=== PATIENT | male | born 1980 | race Caucasian/White ===

== ENCOUNTER 2023-12-11 08:16 | Outpatient (CLI) | payer BC ==
--- NOTE | 2023-12-11 22:25 | CT Report ---
PROCEDURE: Pelvis WO INDICATIONS: L INGUINAL PAIN TECHNIQUE: Noncontrast 3 mm axial sections acquired through the bony pelvis, with coronal and sagittal reformatt ing. For radiation dose reduction, the following was used: automated exposure control, adjustment of mA and/or kV according to patient size. COMPARISON: None. FINDINGS: Image quality: Excellent. Bones: No aggressive appearing lesion. Small lucencies at the right ilium, (4/). A small intraosse ous hemangioma at L4. No fracture. No dislocation. Soft tissues: Somewhat prominent stool the colon. The appendix is nondilated. No free fluid in the p leora. Probable fat-containing right inguinal hernia. No left inguinal hernia seen. Small hydroceles. Question left varicocele. IMPRESSION: 1. Probable fat-containing right inguinal hernia. 2. No left inguinal hernia seen. Question left varicocele. Consider further evaluation with paulo briggs Reviewed by: Stew Reyes MD on 12/11/2023 10:24 PM PDT Approved by: Stew Reyes MD on 12/11/2023 10:24 PM PDT Station ID: [id number]
== END 2023-12-11 08:17 | disposition home or self-care (01) ==
LOC: DI 08:16
PROVIDERS: ATTEND Surgery
DX: R10.2 Pelvic and perineal pain (principal)

== ENCOUNTER 2023-12-29 06:25 | Day surgery (SDC) | payer BC ==
[2023-12-29] MEDS ORDERED: ceFAZolin 2 GM VIAL ONE (06:27)
[2023-12-29] MEDS: LACTATED RINGERS 1,000 ML IV ONE ×3 (06:34→12:16)
--- NOTE | 2023-12-29 06:55 | ANESTHESIA ---
Pre-Anesthesia VS, & Labs - Diagnosis R inguinal hernia, LIH recurrent pain - Procedure B inguinal hernia repair Vital Signs: Temp Pulse Resp BP Pulse Ox O2 Flow Rate 36.3 C L 59 L 14 112/65 95 12/29/23 06:35 12/29/23 06:35 12/29/23 06:35 12/29/23 06:35 12/29/23 06:35 Height: 5 ft 8.5 in Weight (kg): 84.2 kg Body Mass Index: 27.8 BMI Classification: Overweight - NPO >8 hours - Lab Results Lab results reviewed: Yes Home Medications and Allergies Home Medications: Ambulatory Orders Acetaminophen [Tylenol] 650 mg PO Q6H PRN 12/22/23 Meloxicam [Mobic] 7.5 mg PO DAILY PRN 12/22/23 Acetaminophen [Tylenol] 650 mg PO Q6H PRN 12/22/23 Meloxicam [Mobic] 7.5 mg PO DAILY PRN 12/22/23 Allergies/Adverse Reactions: Allergies Allergy/AdvReac Type Severity Reaction Status Date / Time No Known Drug Allergies Allergy Verified 12/29/23 06:58 Anes History & Medical History - Anesthetic History Anesthesia Complications: reports: No previous complications Family history of Anesthesia Complications: Denies Family history of Malignant Hyperthermia: Denies - Medical History Cardiovascular: reports: None Pulmonary: reports: None Gastrointestinal: reports: None Urinary: reports: None Musculoskeletal: reports: None Endocrine/Autoimmune: reports: None Skin: reports: Rosacea - Surgical History General: reports: Other Exam General: Alert, Oriented x3, Cooperative Dental: WNL Mouth Openin Fingerbreadth Neck Mobility: Normal Mallampati classification: II Thyromental Distance: 4-6 cm Respiratory: Lungs clear Cardiovascular: Regular rate Neurological: Normal speech Mental/Cognitive Status: Alert/Oriented X3, Normal for patient Cognitive Status: Within normal limits Plan Anesthesia Type: General Consent for Procedure(s) Verified and Reviewed: Yes Code Status: Attempt Resuscitation ASA classification: 2-Mild systemic disease Is this case an emergency?: No
[2023-12-29] MEDS ORDERED: PROPOFOL 200 MG/20 ML VIAL IVP ONE (07:03)
[2023-12-29] MEDS ORDERED: LIDOCAINE-PF 2% 10 ML AMP SUBQ ONE (07:03)
[2023-12-29] MEDS ORDERED: fentaNYL 100 MCG/2 ML VIAL ONE ×3 (07:03→10:36)
[2023-12-29] MEDS ORDERED: MIDAZOLAM 2 MG/2 ML VIAL ONE (07:03)
[2023-12-29] MEDS ORDERED: BUPIVACAINE 0.5%-EPI 1:200000 PF 30 ML VIAL ONE ×2 (07:16→10:18)
[2023-12-29] MEDS ORDERED: HYDROmorphone 0.5 MG/0.5 ML SYRINGE IVP PRN ×2 (07:20→12:27)
[2023-12-29] MEDS ORDERED: METOCLOPRAMIDE 10 MG/2 ML VIAL IVP PRN (07:20)
[2023-12-29] MEDS ORDERED: ePHEDrine 50 MG/ML VIAL IVP PRN (07:20)
[2023-12-29] MEDS ORDERED: fentaNYL 100 MCG/2 ML VIAL IVP PRN (07:20)
[2023-12-29] MEDS ORDERED: MORPHINE 2 MG/ML CARPUJECT IVP PRN (07:20)
[2023-12-29] MEDS ORDERED: NALOXONE 0.4 MG/ML VIAL IVP PRN (07:20)
[2023-12-29] MEDS: BUPIVACAINE 0.5%-EPI 1:200000 PF 30 ML VIAL SUBQ ONE (07:20)
[2023-12-29] MEDS ORDERED: ATROPINE ABBOJECT 1 MG/10 ML SYRINGE IVP PRN (07:20)
[2023-12-29] MEDS ORDERED: LACTATED RINGERS 1,000 ML IV SCH (08:00)
[2023-12-29] MEDS ORDERED: DEXAMETHASONE 4 MG/ML VIAL ONE (08:15)
[2023-12-29] MEDS ORDERED: ONDANSETRON 4 MG/2 ML VIAL ONE ×2 (08:15→12:10)
[2023-12-29] MEDS ORDERED: ACETAMINOPHEN 1,000 MG/100 ML 1,000 MG/100 ML BAG IV ONE (09:17)
[2023-12-29] MEDS ORDERED: ALBUTEROL 6.7 GM INHALER INH ONE (09:23)
[2023-12-29] MEDS ORDERED: KETOROLAC 30 MG/ML VIAL ONE (09:54)
[2023-12-29] MEDS: LACTATED RINGERS 300 ML IV ONE ×2 (11:30→11:55)
--- NOTE | 2023-12-29 11:38 | OPERATIVE REPORT ---
Operative Report - General Procedure Date: 12/29/23 Planned Procedure: Exploration of left inguinal herniorrhaphy site, possible explantation of mesh, possible neurectomy (left ilioinguinal), possible left inguinal herniorrhaphy, hydrocelectomy Right inguinal herniorrhaphy, hydrocelectomy Pre-Op Diagnosis: Persistent debilitating pain left inguinal herniorrhaphy site Procedure Performed: Exploration of left inguinal herniorrhaphy site, explantation of mesh, neurectomy of left ilioinguinal nerve, left direct inguinal herniorrhaphy with mesh, left hydrocelectomy Right direct inguinal herniorrhaphy with mesh, right hydrocelectomy Intraoperative consultation to Harpreet Rosado MD (urologist) Post Op Diagnosis: Right direct inguinal hernia, right hydrocele, left hydrocele, left ilioing - Procedure Note Primary Surgeon: Peter Olson MD Secondary Surgeon: Harpreet Rosado MD Anesthesia Provider: Stone Medina CRNA Anesthesia Technique: General LMA, Local (50 mL of half percent Marcaine with epinephrine (30 mL applied to the left-hand side and a 20 mL applied to the right-hand side)) IV Fluids (mL): 800 Estimated Blood Loss (mL): 15 Drain/Tube Type: Other (None.) Complications: None. - Other Other Information/Narrative: After verbal and written informed consent was obtained detailing the operation, the alternatives the operation including no operation, risks of infection, bleeding requiring transfusion with its risks, loss of the testicle, nerve injury, and and after I met with the patient and his mother confirming the surgery and the site of surgery, the patient was brought to the operative suite and placed supine on the operating table. Great care was taken to avoid pressure points to prevent pressure necrosis or nerve injury. Monitoring devices were applied along with TEDs and pneumatic compression stockings (to prevent DVT). The patient received preoperative antibiotics for surgical prophylaxis. Stone Medina CRNA sedated and anesthetized the patient for the entire procedure. The patient was prepped and draped in the usual sterile manner. With the patient draped my initials were clearly visible. A "time in" then confirmed that the patient was identified with 3 identifiers (name, date, and medical record number), the history and physical was updated and in the chart, the signed consent confirming the procedure was in the chart, the patient was in the correct position, the aforementioned prophylactic measures were in place or given, we had the correct personnel and equipment to complete the procedure and that anesthesia and the surgical team were given an opportunity to express any concerns. With the agreement of everyone in the room we proceeded with the operation. I decided not to use the previous inguinal incision as it was almost 3 inches superior to where I would normally place my inguinal incision. As such, I incised the skin starting and the superior lateral aspect of the pubic tubercle and going laterally 8 cm. Dissection was carried out down through the subcutaneous tissues using a combination of Metzenbaum scissors and Bovie electrocautery. The external bleak aponeurosis was identified there was very well-defined Viviana's fascia and this was traversed and going deeper to the external oblique aponeurosis. At this point in time there was marked scarring and due to an overwhelming concern of mine that the dissection could compromise the patient's testicle I decided to consult Dr. Harpreet Rosado. He promptly arrived to the operating theater and was present for the entirety of the left sided surgery (greater than 2-1/2 hours). The external oblique aponeurosis was cleared of overlying adherent tissue, and the external ring was delineated. The external oblique was incised with a scalpel and this incision was carried down to the external ring using Metzenbaum scissors. Care was taken not to injure the ilioinguinal nerve. Having exposed the inguinal canal, the cord structures were from the canal using blunt dissection and a Danyel drain was placed around the cord structures at the level of the pubic tubercle. This Danyel drain was then used to retract the cord structures as needed. Adherent cremasteric muscle was dissected free from the cord using Bovie electrocautery. The external oblique was carefully opened using a scalpel and this was dissected free from the cord contents and mesh with difficulty. Control of the cord contents was obtained at the pubic tubercle and a [place] drain was placed around it. The Danyel drain was used to retract the cord structures as needed. There was marked scarring. The ProGrip mesh had been used previously has an opening which creates the internal ring but this did not appear to have been used during our dissection. Rather, the cord contents were coming out laterally to where the mesh had been placed. As the mesh placement did not make sense in relationship to the internal ring I decided that explantation of the mesh was the best option. This was done with the greatest of difficulty. There was marked scarring and adhesions. The mesh was from the conjoined tendon superiorly and the shelving edge inferiorly as well as the pubic tubercle medially using combination of Metzenbaum scissors, scalpel, Bovie electrocautery, and traction and countertraction. The previously placed Prolene sutures were also removed. Once the mesh was removed the cord was explored in detail using a combination of sharp and blunt dissection and no indirect sac could be found. At this point attention was placed towards resecting the hydrocele. The testicle was brought up into the operative field the hydrocele identified opened and drained. The wall was then brought around the testicle and sewn to itself to ensure that there would be no recurrence using a running 3-0 Vicryl suture. Meticulous hemostasis was obtained using Bovie electrocautery. The testicle was then carefully placed into the scrotum. I then directed my attention to finding the ilioinguinal nerve at the superior lateral aspect of the wound and this was found. As I traced the nerve down medially it was clear that had been involved in the scarring and mesh and I decided that transection of the nerve and a superior lateral most aspect would be the best option to minimize or do away with this patient's pain. The nerve was sharply cut using Metzenbaum scissors. I opted not to send the nerve in for pathologic evaluation. A very large direct hernia was now the only remaining part of this operation that needed to be addressed. An extra large Bard PerFix plug (Ref#[id number], Lot#[id number], use by 2028-02-09) was then inserted into the direct hernia and secured to the edges of the hernia sac and closing the hernia sac using a [id number] 2-0 PDS. This allowed the hernia to be fixed without the hernia sac in our way. Two 0 PDS sutures were placed in the pubic tubercle and secured to the mesh in a U-stitch consideration configuration. The inferior stitch was then run laterally securing the mesh to the shelving edge of Poupart's ligament. The superior stitch was then run laterally securing the mesh to the conjoined tendon. Of course in both cases a try to find the very best tissue that I could considering the patient's scarring. The cord contents were clearly placed in the slot in the mesh that was meant for this purpose. The mesh was secured around the cord structures loosely with a 2-0 PDS suture thus creating a new internal ring. This new internal ring easily fit the tip of my middle finger. The [place] drain was then removed. Meticulous hemostasis was obtained using Bovie electrocautery. The wound was then injected superficially and deep using 30 mL of half percent Marcaine with epinephrine. The incision the external oblique was approximated using 3-0 Vicryl in a running fashion thus reforming the external ring. At the lateral aspect of this closure the mesh was picked up intentionally to ensure that it was secured both medially at the pubic tubercle and laterally. Viviana's fascia was approximated using interrupted 4-0 Monocryl. The skin incision was approximated with 4-0 Monocryl in a subcuticular fashion. The skin was cleaned of its prep and Dermabond was applied. I thanked Dr. Harpreet Rosado very much for his participation as this operation would have taken markedly longer without his involvement. I also believe that his presence markedly improved the patient's chances of not having any injury to his testicle. Attention was then directed to the right-hand side. A second time in was then done to ensure that we did not need to redosed the patient with antibiotics. The entire surgical team changed gloves. The surgical team were given an opportunity to express any concerns and with the agreement of everyone in the room we proceeded with the right-sided operation. A standard inguinal incision was made (mirroring the other side) and dissection was carried down to the external oblique aponeurosis using a combination of Metzenbaum scissors and Bovie electrocautery. The external oblique aponeurosis was cleared of overlying adherent tissue, and the external ring was delineated. The external oblique was incised with a scalpel and this incision was carried down to the external ring using Metzenbaum scissors. Care was taken not to injure the ilioinguinal nerve. Having exposed the inguinal canal, the cord structures were from the canal using blunt dissection and a Danyel drain was placed around the cord structures at the level of the pubic tubercle. This Danyel drain was then used to retract the cord structures as needed. Adherent cremasteric muscle was dissected free from the cord using Bovie electrocautery. The cord was then explored using a combination of sharp and blunt dissection, and again no indirect sac was found. At this point attention was placed towards resecting the hydrocele. The test icle was brought up into the operative field the hydrocele identified opened and drained. The wall was then brought around the testicle and sewn to itself to ensure that there would be no recurrence using a running 3-0 Vicryl suture. Meticulous hemostasis was obtained using Bovie electrocautery. The testicle was then carefully placed into the scrotum. I obtained a large Bard PerFix plug (Ref#[id number], Lot#[id number], use by 2027-09-10). On the right-hand side there was a very modest direct inguinal hernia and this would not allow for placement of the large Bard PerFix plug. Two 0 PDS sutures were placed in the pubic tubercle and secured to the mesh in a U-stitch consideration configuration. The inferior stitch was then run laterally securing the mesh to the shelving edge of Poupart's ligament. The superior stitch was then run laterally securing the mesh to the conjoined tendon. Of course in both cases a try to find the very best tissue that I could considering the patient's scarring. The cord contents were clearly placed in the slot in the mesh that was meant for this purpose. The mesh was secured around the cord structures loosely with a 2-0 PDS suture thus creating a new internal ring. This new internal ring easily fit the tip of my middle finger. The Danyel drain was then removed. Meticulous hemostasis was obtained using Bovie electrocautery. The wound was then injected superficially and deep using 30 mL of half percent Marcaine with epinephrine. The incision the external oblique was approximated using 3-0 Vicryl in a running fashion thus reforming the external ring. The skin incision was approximated with 4-0 Monocryl in a subcuticular fashion. The skin was cleaned of its prep and Dermabond was applied. At this point a timeout was performed that confirmed that all counts were correct x2, the procedure that was performed, the blood loss, the IV fluids administered, the patient's condition, and any concerns of the operating team had. Having param ated the procedure well, the patient was taken recovery room in good and stable condition. Gentle downward traction ensured the testes were well seated in the scrotum. The plan is for outpatient discharge when the patient is adequately recovered. CPT BILATERAL hydrocelectomy 93521 CPT BILATERAL inguinal herniorrhaphy 79871 mod 50 CPT explantation mesh 90340 CPT LEFT ilioinguinal neurectomy 21838 This document was created in part using voice recognition technology. Because of the inherent limitations of the system, occasional same sounding word substitutions and grammatical errors do occur and persist despite proofreading. Please read this document for content.
[2023-12-29] MEDS: ONDANSETRON 4 MG/2 ML VIAL IVP PRN (12:11)
[2023-12-29] MEDS ORDERED: ONDANSETRON 4 MG/2 ML VIAL IVP PRN (12:27)
[2023-12-29] MEDS: HYDROcod/ACETAM 5/325 MG TABLET PO PRN (12:42)
[2023-12-29] MEDS ORDERED: PROMETHAZINE INJ 12.5 MG in SODIUM CHLORIDE 0.9% 50 ML IV PRN (12:45)
[2023-12-29] MEDS ORDERED: HYDROcod/ACETAM 5/325 MG TABLET ONE (12:49)
[2023-12-29] MEDS: PROMETHAZINE 25 MG/1 ML VIAL ONE (12:52)
[2023-12-29] MEDS: SCOPOLAMINE PATCH TOP SCH (12:52)
--- NOTE | 2023-12-29 13:29 | ANESTHESIA POST OP EVALUATION ---
Anesthesia Post Eval - Post Anesthesia Eval Vitals: Last Vital Signs Temp 36.6 C 12/29/23 12:30 Pulse 79 12/29/23 12:56 Resp 16 12/29/23 12:56 BP 114/74 12/29/23 12:56 Pulse Ox 99 12/29/23 12:56 O2 Flow Rate CV Function Including HR & BP: Stable Pain Control: Satisfactory Nausea & Vomiting: Negative Mental Status: Baseline Respiratory Status: Airway Patent Hydration Status: Satisfactory Anesthesia Complications: Other (c/o L eye itching. NS drops offered with good relief per patient.)
[2023-12-29 13:43] VITALS: BP 125/75; O2SAT 98
--- NOTE | 2023-12-29 16:02 | OPERATIVE REPORT ---
Operative Report - General Planned Procedure: intraoperative consult Pre-Op Diagnosis: Left inguinal pain Procedure Performed: left hydrocelectomy, other procedures per Dr Olson operative report Post Op Diagnosis: left hydrocele - Procedure Note Primary Surgeon: Peter Olson Secondary Surgeon: Harpreet Rosado Anesthesia Provider: GIANCARLO Ritter Anesthesia Technique: General ET tube Pathology: None from urology portion Estimated Blood Loss (mL): 2 Indications: Persistent inguinal and testicular pain after mesh placement Findings: Spermatic cord lateral to mesh Ilioinguinal nerve identified, divided proximally Left non communicating hydrocele- jaboulay procedure Complications: none - Other Other Information/Narrative: Sameera thrasher is working is working case urology was consulted as an intraoperative consult for patient who was undergoing at that time a left inguinal hernia mesh explantation and revision. Urology was consulted to help with identification and management of spermatic cord structures. At the time of presentation the patient was already intubated and had a left inguinal incision dissecting down to the external oblique fascia. We were able to help Dr. Olson with identifying valle structures and mostly help to improve exposure. This portion of the procedure will be dictated by Dr. Olson. Once we have fully identified the spermatic cord, we were able to invert the tunica vaginalis and the scrotum through the inguinal incision. The gubernacular attachments were divided with cautery. He was noted to have a hydrocele surrounding the testicle. Reportedly this did cause some discomfort to the patient. His tunica vaginalis was opened using cautery and about 50 cc of straw-colored fluid was found on the testicle. The vaginalis tissue was inverted around spermatic cord and jubilantly type hydrocelectomy was performed. This was closed with 3-0 Vicryl suture. A left testicular appendage was identified and was cauterized away to prevent future Torsion and Pain. Hemostasis was excellent. The testicle and spermatic cord were replaced back in the scrotum in the orthotopic position. Urology remained available to help with exposure until Dr. Olson had placed mesh on the left side. At that point in time urology help was no longer required and we unscrubbed.
== END 2023-12-29 06:26 | disposition home or self-care (01) ==
LOC: SDS 06:25
PROVIDERS: ATTEND Surgery
DX: K40.20 Bilateral inguinal hernia, without obstruction or gangrene, not specified as recurrent (principal); N43.3 Hydrocele, unspecified; Z87.891 Personal history of nicotine dependence
CPT/HCPCS: 49505; 55500; 64999; A9270; C1781; J0131; J3490; J7040; J7120; J7613